=== PATIENT | male | born 1960 | race Caucasian/White ===

== ENCOUNTER → 2018-10-12 | Outpatient (REF) ==
--- NOTE | 2018-10-12 14:42 | REP ---
Right ankle four views : There is no fracture or dislocation. Mineralization and joint spaces are normal. There are no calcifications or foreign bodies. Impression: Negative right ankle . Electronically Signed by Sean Grace MD 10/12/2018 02:34 P
== END ==
LOC: M RAD 14:07
PROVIDERS: ATTEND Family Medicine
DX: M25.571 Pain in right ankle and joints of right foot (principal)

== ENCOUNTER 2024-07-08 14:54 | Emergency (ER) | payer OTHER ==
[~2024-07-08] VITALS: Ht 177.8 cm; Wt 81.2 kg
[2024-07-08] MEDS ORDERED: ERGO500029 PO (15:11)
[2024-07-08] MEDS ORDERED: THIA100TA PO (15:11)
[2024-07-08] MEDS ORDERED: ROSU20TA86 PO (15:11)
[2024-07-08] MEDS ORDERED: METOPROLOL (15:11)
[2024-07-08] MEDS ORDERED: B-12100010 PO (15:11)
[2024-07-08] MEDS ORDERED: ALLO100T PO (15:11)
[2024-07-08] MEDS ORDERED: SILD20TA50 PO (15:11)
[2024-07-08 16:46] LABS: BASO % 0.5 % (0.0-1.0); EOS # 0.1 10^3/uL (0.0-0.5); EOS % 1.1 % (0.0-3.0); HEMATOCRIT 43.5 % (42.0-52.0); HEMOGLOBIN 15.8 g/dl (13.5-17.5); LYMPH # 1.9 10^3/uL (1.5-5.0); LYMPH % 28.6 % (24.0-44.0); MEAN CORPUSCULAR HEMOGLOBIN 33.3 pg (27.0-33.0); MEAN CORPUSCULAR HGB CONC 36.3 g/dl (32.0-36.5); MEAN CORPUSCULAR VOLUME 91.8 fl (80.0-96.0); MONO # 0.4 10^3/uL (0.0-0.8); MONO % 5.7 % (2.0-8.0); NEUTROPHILS # 4.1 10^3/uL (1.5-8.5); NEUTROPHILS % 63.8 % (36.0-66.0); PLATELET COUNT, AUTOMATED 155 10^3/uL (150-450); RED BLOOD COUNT 4.74 10^6/uL (4.30-6.10); WHITE BLOOD COUNT 6.5 10^3/uL (4.0-10.0)
[2024-07-08 17:01] LABS: LIPASE 48 U/L (12-53)
[2024-07-08 17:03] LABS: AMYLASE 61 U/L (30-118)
[2024-07-08 17:05] LABS: ALKALINE PHOSPHATASE 62 U/L (40-129); ALT/SGPT 29 U/L (7.0-40); AST/SGOT 31 U/L (<34); BILIRUBIN,DIRECT < 0.1 MG/DL (<0.4); BILIRUBIN,TOTAL 0.4 MG/DL (0.3-1.2); BLOOD UREA NITROGEN 16 MG/DL (9-23); CALCIUM LEVEL 8.8 MG/DL (8.3-10.6); CARBON DIOXIDE LEVEL 23 MMOL/L (20-31); CHLORIDE LEVEL 104 MMOL/L (98-107); CREATININE FOR GFR 0.81 MG/DL (0.70-1.30); GLOMERULAR FILTRATION RATE > 60.0 (>49); GLUCOSE, FASTING 81 MG/DL (74-106); POTASSIUM SERUM 3.9 MMOL/L (3.5-5.1); SODIUM LEVEL 136 MMOL/L (136-145); TOTAL PROTEIN 7.4 G/DL (5.7-8.2)
[2024-07-08 17:30] VITALS: BP 126/81; TEMP 98.1; O2SAT 96
== END 2024-07-08 17:38 | disposition home or self-care (01) ==
LOC: M ED 14:54
DX: R10.9 Unspecified abdominal pain (principal); I10 Essential (primary) hypertension; E78.5 Hyperlipidemia, unspecified; M10.9 Gout, unspecified; F17.200 Nicotine dependence, unspecified, uncomplicated; F10.10 Alcohol abuse, uncomplicated; Z79.899 Other long term (current) drug therapy